=== PATIENT | female | born 2000 | race Two or more races ===

== ENCOUNTER → 2020-11-20 | Outpatient (CLI) | payer OTHER ==
[2020-11-20 10:03] LABS: BASO # 0.1 x10^3/uL (0.0-0.2); BASO % 1 % (0-3); EOS # 0.2 x10^3/uL (0.0-0.7); EOS % 2 % (0-3); HEMATOCRIT 40.1 % (36.0-47.0); HEMOGLOBIN 13.7 g/dL (12.0-15.5); LYMPH # 3.7 x10^3/uL (1.0-4.8); LYMPH % 26 % (24-48); MEAN CORPUSCULAR HEMOGLOBIN 30 pg (25-35); MEAN CORPUSCULAR HGB CONC 34 g/dL (31-37); MEAN CORPUSCULAR VOLUME 88 fL (79-100); MONO % 7 % (0-9); NEUT # 9.4 x10^3/uL (1.8-7.7); NEUT % 65 % (31-73); PLATELET COUNT 384 x10^3/uL (140-400); RED BLOOD COUNT 4.55 x10^6/uL (3.50-5.40); RED CELL DISTRIBUTION WIDTH 11.7 % (11.5-14.5); WHITE BLOOD COUNT 14.5 x10^3/uL (4.0-11.0)
[2020-11-20 10:12] LABS: ALBUMIN 3.9 g/dL (3.4-5.0); CALCIUM 8.9 mg/dL (8.5-10.1); CREATININE 0.6 mg/dL (0.6-1.0); GFR 126.2; TOTAL BILIRUBIN 0.7 mg/dL (0.2-1.0); TOTAL PROTEIN 7.8 g/dL (6.4-8.2)
[2020-11-20 10:14] LABS: CHOLESTEROL/HDL RATIO 3.8
[2020-11-20 23:33] LABS: HEMOGLOBIN A1C 4.9 % (4.8-5.6)
== END ==
LOC: LAB 09:32
PROVIDERS: ATTEND Nurse Practitioner Family
DX: Z00.00 Encounter for general adult medical examination without abnormal findings (principal); Z68.37 Body mass index [BMI] 37.0-37.9, adult
CPT/HCPCS: 36415; 80053; 80061; 83036; 84436; 84443; 85025

== ENCOUNTER 2021-02-23 17:33 | Emergency (ER) | payer OTHER ==
[~2021-02-23] VITALS: Ht 165.1 cm; Wt 80.0 kg
[2021-02-23 19:44] VITALS: BP 123/70
--- NOTE | 2021-02-23 22:37 | PHYS DOC ---
Past Medical History Past Medical History: No Pertinent History Past Surgical History: Other Smoking Status: Never Smoker Alcohol Use: None Drug Use: None General Adult EDM: Chief Complaint: FINGER INJURY HPI: HPI: Patient is a 20 year old female who presents with was closing her garage door manually when her right ring finger tip got crushed in one of the slats of the garage door. She does have fake acrylic nails on. It cracked the actual fake acrylic nail but her nail is still attached in the nailbed and there does not appear to be any actual damage to the nailbed or the real nail. There is scant dried blood under and in the crevice of the cuticle of the nail. There is not appear to be any blood accumulating under her real nail. Patient is rating her pain 8 out of 10. She states she is taking no pain medicine today. She denies numbness or tingling. Review of Systems: Review of Systems: Constitutional: Denies fever or chills. [] Eyes: Denies change in visual acuity. [] HENT: Denies nasal congestion or sore throat. [] Respiratory: Denies cough or shortness of breath. [] Cardiovascular: Denies chest pain or edema. [] GI: Denies abdominal pain, nausea, vomiting, bloody stools or diarrhea. [] : Denies dysuria. [] Musculoskeletal: Denies back pain or joint pain. [] Integument: Denies rash. [] Neurologic: Denies headache, focal weakness or sensory changes. [] Endocrine: Denies polyuria or polydipsia. [] Lymphatic: Denies swollen glands. [] Psychiatric: Denies depression or anxiety. [] Heart Score: C/O Chest Pain: No Allergies: Allergies: Allergies Coded Allergies Type Severity Reaction Last Updated Verified No Known Drug Allergies 07/28/14 No Physical Exam: PE: Constitutional: Well developed, well nourished, no acute distress, non-toxic appearance. [] HENT: Normocephalic, atraumatic, bilateral external ears normal, oropharynx moist, no oral exudates, nose normal. [] Eyes: PERRLA, EOMI, conjunctiva normal, no discharge. [] Neck: Normal range of motion, no tenderness, supple, no stridor. [] Cardiovascular:Heart rate regular rhythm, no murmur [] Lungs & Thorax: Bilateral breath sounds clear to auscultation [] Abdomen: Bowel sounds normal, soft, no tenderness, no masses, no pulsatile masses. [] Skin: Warm, dry, no erythema, no rash. [] Back: No tenderness, no CVA tenderness. [] Extremities: Right fourth fingertip swelling and tenderness tenderness, no cyanosis, no clubbing, right fourth finger DIP ROM limited, right fourth finger 1+ edema. [] Neurologic: Alert and oriented X 3, normal motor function, normal sensory function, no focal deficits noted. [] Psychologic: Affect normal, judgement normal, mood normal. [] Current Patient Data: Vital Signs: Vital Signs Date Time Temp Pulse Resp B/P (MAP) Pulse Ox O2 Delivery O2 Flow Rate FiO2 02/23/21 19:44 98.2 74 18 123/70 (87) 99 Room Air 98.2 EKG: EKG: [] Radiology/Procedures: Radiology/Procedures: [] Impression: [facility] [address] [place] [address] IMAGING REPORT Signed PATIENT: ZAYRA DE LA GARZA ACCOUNT: [id number] : 2000 LOCATION: ER AGE: 20 SEX: F EXAM STATUS: REG ER ORD. PHYSICIAN: JOHNNA DAVIDSON APRN REASON: crushed tip of right ring finger PROCEDURE: HAND RIGHT 3V EXAM: PA, oblique and lateral views right hand DATE: 02/23/2021 10:37 PM INDICATION: Reason: crushed tip of right ring finger / Spl. Instructions: / History: . COMPARISON: No Prior FINDINGS: Joint spaces are preserved without significant degenerative/proliferative change. There is an oblique fracture through the tuft of the right ring finger. Moderate associated soft tissue swelling. IMPRESSION: Oblique fracture through the tuft of the distal phalanx ring finger with moderate associated soft tissue swelling. Electronically signed by: Uriel Steel MD (02/23/2021 11:01 PM) [facility] DICTATED and SIGNED BY: URIEL STEEL MD DATE: 02/23/21 [id number] Course & Med Decision Making: Course & Med Decision Making Pertinent Labs and Imaging studies reviewed. (See chart for details) See HPI. Radial pulse strong present. Cap refill less than 2 seconds. Nail is attached and still in the nailbed. Clear based fake acrylic nail is cracked but still attached to her real nail. Her actual nail is not appear to be lifted up off of the nailbed. The nailbed does not look to be accumulating blood or to be damaged. Patient is told to just let it grow out. There is 1+ swelling with some redness and looks like some bruising. Alert and oriented x4. Skin pink warm and dry. No laceration. Finger is placed in a alumnifoam splint. Patient is given a [place] in the ED. [] Dragon Disclaimer: Dragon Disclaimer: This electronic medical record was generated, in whole or in part, using a voice recognition dictation system. Departure Departure Impression: Primary Impression: Closed fracture of tuft of distal phalanx of finger Disposition: 01 HOME / SELF CARE / HOMELESS Condition: STABLE Referrals: STEVE HENAO MD (PCP) FUNMI DAWSON MD Patient Instructions: Crush Injury, Fingers or Toes, Finger Fracture Additional Instructions: Use ice and elevation to help with pain and swelling. Leave finger in Splint until you follow up. Take ibuprofen for pain. JOHNNA DAVIDSON [employer] Feb 23, 2021 22:37
[2021-02-23] MEDS ORDERED: HYDROcodone/APAP 5/325MG 1 TAB TABLET PO ONE (23:00)
--- NOTE | 2021-02-23 23:03 | RAD ---
EXAM: PA, oblique and lateral views right hand DATE: 02/23/2021 10:37 PM INDICATION: Reason: crushed tip of right ring finger / Spl. Instructions: / History: . COMPARISON: No Prior FINDINGS: Joint spaces are preserved without significant degenerative/proliferative change. There is an oblique fracture through the tuft of the right ring finger. Moderate associated soft tissue swelling. IMPRESSION: Oblique fracture through the tuft of the distal phalanx ring finger with moderate associated soft tis rio swelling. Electronically signed by: Uriel Shell MD (02/23/2021 11:01 PM) GABRIELLE
== END 2021-02-23 23:20 | disposition home or self-care (01) ==
LOC: ER 17:33
DX: S62.634A Displaced fracture of distal phalanx of right ring finger, initial encounter for closed fracture (principal); W23.0XXA Caught, crushed, jammed, or pinched between moving objects, initial encounter; Y93.89 Activity, other specified; Y92.89 Other specified places as the place of occurrence of the external cause; Y99.8 Other external cause status
CPT/HCPCS: 73130; 99283

== ENCOUNTER → 2021-02-23 | Outpatient (CLI) | payer OTHER ==
--- NOTE | 2021-02-23 18:44 | KCIC ---
EXAM: XR KNEE _3 VIEWS_LT 02/23/2021 11:30 AM CLINICAL INDICATION: Left knee pain after fall yesterday. COMPARISON: None TECHNIQUE: 3 views of the left knee FINDINGS: No acute fracture. Alignment is normal. Joint spaces are maintained. No joint effusion or focal soft tissue abnormality. IMPRESSION: Normal left knee radiograph. Electronically signed by: Alexa Keyes MD (02/23/2021 6:42 PM) [id number]
== END ==
LOC: KCIC 11:27
PROVIDERS: ATTEND Nurse Practitioner
DX: M25.562 Pain in left knee (principal); W19.XXXA Unspecified fall, initial encounter
CPT/HCPCS: 73562

== ENCOUNTER → 2021-08-19 | Outpatient (CLI) | payer OTHER ==
--- NOTE | 2021-08-19 13:46 | RAD ---
US BREAST RT History:Reason: RT Breast Skin Lesion x 2 months; Abscess / Spl. Instructions: / History: Comparison: None Technique: Sonographic examination of the right breast Findings: Cutaneous thickening corresponding with patient's palpable concern. No fluid collection. No subcutane ous mass. Impression: 1. Cutaneous thickening corresponding with patient's palpable concern. Recommend further clinical ev aluation and follow-up. No abscess. BI-RADS Category 2: Benign. Electronically signed by: Lio Holbrook DO (08/19/2021 1:44 PM) [id number]
== END ==
LOC: US 09:03
PROVIDERS: ATTEND Nurse Practitioner Family
DX: N61.1 Abscess of the breast and nipple (principal); N64.89 Other specified disorders of breast
CPT/HCPCS: 76641

== ENCOUNTER → 2021-10-13 | Outpatient (CLI) | payer OTHER ==
[2021-10-13 07:50] LABS: BASO # 0.1 x10^3/uL (0.0-0.2); BASO % 1 % (0-3); EOS # 0.1 x10^3/uL (0.0-0.7); EOS % 1 % (0-3); HEMATOCRIT 39.3 % (36.0-47.0); HEMOGLOBIN 13.5 g/dL (12.0-15.5); LYMPH # 3.6 x10^3/uL (1.0-4.8); LYMPH % 27 % (24-48); MEAN CORPUSCULAR HEMOGLOBIN 31 pg (25-35); MEAN CORPUSCULAR HGB CONC 34 g/dL (31-37); MEAN CORPUSCULAR VOLUME 89 fL (79-100); MONO # 0.9 x10^3/uL (0.0-1.1); MONO % 7 % (0-9); NEUT # 8.5 x10^3/uL (1.8-7.7); NEUT % 64 % (31-73); PLATELET COUNT 364 x10^3/uL (140-400); RED BLOOD COUNT 4.43 x10^6/uL (3.50-5.40); RED CELL DISTRIBUTION WIDTH 11.7 % (11.5-14.5); WHITE BLOOD COUNT 13.3 x10^3/uL (4.0-11.0)
[2021-10-13 08:05] LABS: ALBUMIN 3.6 g/dL (3.4-5.0); ALBUMIN/GLOBULIN RATIO 0.9 (1.0-1.7); CALCIUM 8.9 mg/dL (8.5-10.1); CREATININE 0.7 mg/dL (0.6-1.0); GFR 104.6; POTASSIUM 3.9 mmol/L (3.5-5.1); TOTAL BILIRUBIN 0.6 mg/dL (0.2-1.0); TOTAL PROTEIN 7.6 g/dL (6.4-8.2)
[2021-10-13 08:06] LABS: CHOLESTEROL/HDL RATIO 3.3
[2021-10-14 00:16] LABS: HEMOGLOBIN A1C 4.8 % (4.8-5.6)
== END ==
LOC: LAB 07:19
PROVIDERS: ATTEND Nurse Practitioner Family
DX: Z00.00 Encounter for general adult medical examination without abnormal findings (principal)
CPT/HCPCS: 36415; 80053; 80061; 83036; 84443; 85025

== ENCOUNTER → 2021-10-21 | Outpatient (CLI) | payer OTHER ==
--- NOTE | 2021-10-21 08:52 | RAD ---
PROCEDURE: MG DIGITAL UNILAT DIAGNOSTIC MAMMO WITH BONNIE HISTORY: The patient is 21 years old and is seen for Reason: BREAST skin lesion/ Spl. Instructions: / History: . COMPARISON: Ultrasound August 19, 2021 TECHNIQUE: CC and MLO views of both breasts were obtained. Images were processed by the [employer] computer-aided detection system. DENSITY: There are scattered fibroglandular densities. FINDINGS: No developing mass, suspicious calcifications or architectural distortion. Findings were discussed with the patient. The open cutaneous lesion is superior to the areola. There is no deep co mponent on palpation of the lesion. The lesion appears within the skin as seen on prior ultrasound. IMPRESSION: No mammographic evidence of malignancy. The patient's open cutaneous lesion persists and will reportedly be evaluated by dermatology. Recommend continued clinical follow-up and ultrasound fo llow-up if interval change. Recommend annual screening mammograms per [place] [employer] guidelines. BI-RADS category 2 Benign Patient entered into a reminder system for annual screening mammogram. Electronically signed by: Lio Holbrook DO (10/21/2021 8:49 AM) [id number]
== END ==
LOC: MAMMO 08:16
PROVIDERS: ATTEND Nurse Practitioner Family
DX: N61.1 Abscess of the breast and nipple (principal)
CPT/HCPCS: 77065; G0279; 77061